=== PATIENT | male | born 1960 | race Caucasian/White ===

== ENCOUNTER 2018-09-25 15:11 | Emergency (ER) | payer OTHER ==
[~2018-09-25] VITALS: Ht 167.6 cm; Wt 72.6 kg
--- NOTE | 2018-09-25 15:15 | NUR ---
PT BIB BY C/O FEVER AND DIZZINESS. PT IS ON MONITOR IN BED 11. AOX4. FAMILY AT BEDSIDE. WILL CONTINUE TO MONITOR.
[2018-09-25] MEDS ORDERED: ACETAMINOPHEN 325 MG TABLET ONE (15:57)
[2018-09-25] MEDS ORDERED: IV NS 0.9% 1,000 ML BAG IV ONE (16:00)
[2018-09-25] MEDS ORDERED: ACETAMINOPHEN 325 MG TABLET PO ONE (16:00)
--- NOTE | 2018-09-25 16:00 | NUR ---
TECH AT BEDSIDE FOR EKG
[2018-09-25 16:06] LABS: BASOPHILS % (AUTO) 0.5 % (0.0-2.0); HEMATOCRIT 39 % (39-51); HEMOGLOBIN 12.8 g/dL (13.5-17.5); LYMPHOCYTES # (AUTO) 0.9 /CMM (0.8-4.8); MEAN CORPUSCULAR HGB CONC 33 g/dl (31.0-36.0); MEAN CORPUSCULAR VOLUME 85 fL (80-96); MONOCYTES # (AUTO) 0.7 /CMM (0.1-1.30); MONOCYTES % (AUTO) 7.1 % (2.0-12.0); NEUTROPHILS # (AUTO) 8.6 /CMM (1.8-8.9); NEUTROPHILS % (AUTO) 83.4 % (43.0-81.0); PLATELET COUNT (AUTO) 178 /CMM (150-450); RED BLOOD CELL COUNT(AUTO) 4.56 MIL/uL (4.5-6.0); WHITE BLOOD COUNT (AUTO) 10.3 K/uL (4.3-11.0)
--- NOTE | 2018-09-25 16:10 | NUR ---
URINE COLLECTED AND SENT TO LAB
[2018-09-25 16:16] LABS: CALCIUM, SERUM 8.4 mg/dL (8.5-10.1); CARBON DIOXIDE 28 mmol/L (21-32); CHLORIDE 94 mmol/L (98-107); CREATININE 1.2 mg/dL (0.6-1.3); GLUCOSE 313 mg/dL (74-106); POTASSIUM 3.3 mmol/L (3.5-5.1); SODIUM SERUM 133 mmol/L (136-145); UREA NITROGEN, BLOOD 13 mg/dL (7-18)
[2018-09-25 16:21] LABS: APPEARANCE,URINE Clear (CLEAR); BILIRUBIN,URINE Negative (NEGATIVE); BLOOD, URINE Small Ery/uL (NEGATIVE); COLOR,URINE Yellow (YELLOW); KETONES,URINE 15 (NEGATIVE); LEUKOCYTE ESTERASE ,URINE Negative (NEGATIVE); NITRITE, URINE Negative (NEGATIVE); PROTEIN,URINE 30 mg/dl (NEGATIVE); UGLUCOSE 500 MG/DL mg/dL (NEGATIVE)
[2018-09-25 16:22] LABS: ALANINE AMINOTRANSFERASE 46 U/L (12-78); ALBUMIN 3.3 g/dL (3.4-5.0); ALKALINE PHOSPHATASE 89 U/L (46-116); ASPARTATE AMINOTRANSFERASE 35 U/L (15-37); BILIRUBIN,DIRECT 0.2 mg/dL (0.0-0.2)
--- NOTE | 2018-09-25 16:23 | NUR ---
RADIOLOGY AT BEDSIDE FOR XRAY
[2018-09-25 16:33] LABS: SQUAMOUS EPITHELIAL CELL,UR Rare /HPF (None Seen)
[2018-09-25 16:34] LABS: BACTERIA,URINE Few /HPF (None Seen)
[2018-09-25] MEDS ORDERED: IBUPROFEN 600 MG TABLET PO ONE ×2 (16:40→17:00)
--- NOTE | 2018-09-25 16:43 | NUR ---
PT TRANSFERRED TO RADIOLOGY VIA [facility]
[2018-09-25] MEDS ORDERED: POTASSIUM CHLORIDE 20 MEQ TAB.PRT.SR PO ONE ×2 (17:30→17:52)
[2018-09-25] MEDS ORDERED: OMEP40CA37 PO (18:12)
[2018-09-25] MEDS ORDERED: FENO145T35 PO (18:12)
[2018-09-25] MEDS ORDERED: CHOL100044 PO (18:12)
[2018-09-25] MEDS ORDERED: SIMV10TA6 PO (18:12)
[2018-09-25] MEDS ORDERED: METF-440 PO (18:12)
[2018-09-25] MEDS ORDERED: METO25TA20 PO (18:12)
[2018-09-25] MEDS ORDERED: INSU3INS9 SQ (18:14)
--- NOTE | 2018-09-25 18:18 | NUR ---
Patient is resting comfortably in bed with eyes closed. Easily aroused. VSS. FAMILY AT BEDSIDE.
--- NOTE | 2018-09-25 19:21 | NUR ---
IV removed. Catheter intact and site benign. Pressure and 4x4 applied to site. No bleeding noted.Patient discharged to home in stable condition. Written and verbal after care instructions given. Patient verbalizes understanding of instruction.
[2018-09-25 19:22] VITALS: BP 126/71
[2018-09-25] MEDS ORDERED: PIPERACILLIN /TAZOBACTAM 3.375 G in IV D5W 50 ML IV ONE (19:30)
[2018-09-26] MEDS ORDERED: FENO134C PO (10:21)
== END 2018-09-25 19:25 | disposition home or self-care (01) ==
LOC: ER 15:26
DX: R10.31 Right lower quadrant pain (principal); R31.9 Hematuria, unspecified; E87.6 Hypokalemia; R50.9 Fever, unspecified; I10 Essential (primary) hypertension; E11.9 Type 2 diabetes mellitus without complications; R94.31 Abnormal electrocardiogram [ECG] [EKG]; R00.0 Tachycardia, unspecified; Z79.4 Long term (current) use of insulin
CPT/HCPCS: 36415; 71045; 74176; 80048; 80076; 81001; 83605; 84484; 85025; 85730; 87040 ×2; 87086; 87804 ×2; 93005; 99284; A4606; J7030 ×2; J7060; Z7610; 81000-TC; 87186-TC; 87400; J2543

== ENCOUNTER 2018-09-26 09:58 | Emergency (ER) | payer OTHER ==
[~2018-09-26] VITALS: Ht 167.6 cm; Wt 77.6 kg
[~2018-09-26 09:58] MED LIST: CHOL100044 PO; FENO145T35 PO; INSU3INS9 SQ; METF-440 PO; METO25TA20 PO; OMEP40CA37 PO; SIMV10TA6 PO
--- NOTE | 2018-09-26 10:14 | NUR ---
PT BIB C/O FEVER AND GENERALIZED WEAKNESS. PT ON MONITOR IN BED 10. WILL CONTINUE TO MONITOR.
[2018-09-26] MEDS ORDERED: FENO134C PO (10:21)
--- NOTE | 2018-09-26 10:23 | NUR ---
TECH AT BEDSIDE FOR EKG
--- NOTE | 2018-09-26 10:25 | NUR ---
PHLEB AT BEDSIDE FOR LAB DRAW
[2018-09-26] MEDS ORDERED: CEFTRIAXONE 1GM BAG (ER ONLY) 50 ML IV ONE ×2 (10:28→10:30)
[2018-09-26] MEDS ORDERED: ACETAMINOPHEN ES 500 MG TABLET ONE ×3 (10:28→17:43)
[2018-09-26] MEDS ORDERED: ACETAMINOPHEN ES 500 MG TABLET PO ONE ×2 (10:30→18:00)
[2018-09-26] MEDS ORDERED: IV NS 0.9% 1,000 ML BAG IV ONE (10:30)
--- NOTE | 2018-09-26 10:30 | NUR ---
ADDENDUM: Intravenous End Time Documentation: Rocephin 1 gram IVPB: start time:1030 am; end time: 1059 am IV site: RAC # 20 Port #1
[2018-09-26 10:33] LABS: BASOPHILS % (AUTO) 0.1 % (0.0-2.0); EOSINOPHILS % (AUTO) 0.1 % (0.0-6.0); HEMATOCRIT 39 % (39-51); HEMOGLOBIN 12.9 g/dL (13.5-17.5); LYMPHOCYTES # (AUTO) 0.7 /CMM (0.8-4.8); LYMPHOCYTES % (AUTO) 6.9 % (20.0-44.0); MEAN CORPUSCULAR HGB CONC 33 g/dl (31.0-36.0); MEAN CORPUSCULAR VOLUME 85 fL (80-96); MONOCYTES # (AUTO) 0.8 /CMM (0.1-1.30); MONOCYTES % (AUTO) 8.1 % (2.0-12.0); NEUTROPHILS # (AUTO) 8.3 /CMM (1.8-8.9); NEUTROPHILS % (AUTO) 84.8 % (43.0-81.0); PLATELET COUNT (AUTO) 183 /CMM (150-450); RED BLOOD CELL COUNT(AUTO) 4.56 MIL/uL (4.5-6.0); WHITE BLOOD COUNT (AUTO) 9.8 K/uL (4.3-11.0)
[2018-09-26 10:40] LABS: CALCIUM, SERUM 8.7 mg/dL (8.5-10.1); CREATININE 1.1 mg/dL (0.6-1.3); POTASSIUM 3.8 mmol/L (3.5-5.1)
--- NOTE | 2018-09-26 10:45 | NUR ---
instructed to get urine sample
[2018-09-26 10:54] LABS: ALBUMIN 3.3 g/dL (3.4-5.0); BILIRUBIN,DIRECT 0.2 mg/dL (0.0-0.2); BILIRUBIN,TOTAL 0.7 mg/dL (0.2-1.0); TOTAL PROTEIN, SERUM 7.4 g/dL (6.4-8.2)
--- NOTE | 2018-09-26 12:15 | NUR ---
DR DRIVER FROM [facility] CALLED ON THE PHONE WITH DR GRAJEDA.
--- NOTE | 2018-09-26 14:56 | NUR ---
PARTIENT WILL BE TRANSFERRED TO [facility] NUMBER FOR REPORT NURSE CHARLA BED [id number]
--- NOTE | 2018-09-26 15:58 | NUR ---
REPORT GIVEN TO SHERI DUNHAM FOR GERA
[2018-09-26 18:23] VITALS: BP 182/106
== END 2018-09-26 18:24 | disposition short-term general hospital (02) ==
LOC: ER 10:00
DX: A41.9 Sepsis, unspecified organism (principal); N39.0 Urinary tract infection, site not specified; I10 Essential (primary) hypertension; R00.0 Tachycardia, unspecified; Z79.4 Long term (current) use of insulin
CPT/HCPCS: 36415; 71045-TC; 80048-TC; 80076-TC; 83605-TC; 84484-TC; 85025-TC; 85730-TC; 87040-TC; 87081-TC; A4606; J0696; J7030; Z7610

== ENCOUNTER 2024-07-12 19:26 | Emergency (ER) | payer MEDICAID, OTHER ==
[~2024-07-12] VITALS: Ht 170.2 cm; Wt 72.1 kg
[~2024-07-12 19:26] MED LIST changes: +FENO134C PO; -FENO145T35 PO; +OMEP40CA21 PO; -OMEP40CA37 PO; -SIMV10TA6 PO; +SIMV10TA98 PO
[2024-07-12] MEDS: IV NS 0.9% 1,000 ML BAG IV ONE (20:00)
[2024-07-12 20:03] LABS: BASOPHILS % (AUTO) 0.3 % (0.0-2.0); EOSINOPHILS # (AUTO) 0.2 K/uL (0.0-0.7); EOSINOPHILS % (AUTO) 3.6 % (0.0-6.0); HEMATOCRIT 39 % (39-51); LYMPHOCYTES # (AUTO) 1.9 K/uL (0.8-4.8); MEAN CORPUSCULAR HEMOGLOBIN 29 PG (26.0-33.0); MEAN CORPUSCULAR HGB CONC 33 g/dl (31.0-36.0); MEAN CORPUSCULAR VOLUME 87 fL (80-96); MONOCYTES # (AUTO) 0.5 K/uL (0.1-1.30); MONOCYTES % (AUTO) 8.6 % (2.0-12.0); NEUTROPHILS # (AUTO) 3.2 K/uL (1.8-8.9); NEUTROPHILS % (AUTO) 54.5 % (43.0-81.0); PLATELET COUNT (AUTO) 183 K/uL (150-450); RED BLOOD CELL COUNT(AUTO) 4.48 MIL/uL (4.5-6.0); RED CELL DISTRIBUTION WIDTH 14.1 % (11.5-15.0); WHITE BLOOD COUNT (AUTO) 5.9 K/uL (4.3-11.0)
[2024-07-12 20:12] LABS: CARBON DIOXIDE 27 mmol/L (21-32); CHLORIDE 104 mmol/L (98-107); CREATININE 2.1 mg/dL (0.6-1.3); GLUCOSE 208 mg/dL (74-106); POTASSIUM 3.4 mmol/L (3.5-5.1); SODIUM SERUM 139 mmol/L (136-145); UREA NITROGEN, BLOOD 44 mg/dL (7-18)
[2024-07-12 20:15] LABS: INR 0.96 (0.91-1.10); PARTIAL THROMBOPLASTIN TIME 24.3 SEC (24.3-34.3); PROTHROMBIN TIME 9.9 SECS (9.2-11.1)
[2024-07-12 20:23] LABS: ALANINE AMINOTRANSFERASE 27 U/L (12-78); ALBUMIN 3.3 g/dL (3.4-5.0); ALKALINE PHOSPHATASE 56 U/L (46-116); ASPARTATE AMINOTRANSFERASE 17 U/L (15-37); BILIRUBIN,DIRECT 0.1 mg/dL (0.0-0.2); BILIRUBIN,TOTAL 0.4 mg/dL (0.2-1.0); CALCIUM, SERUM 8.2 mg/dL (8.5-10.1); TOTAL PROTEIN, SERUM 5.9 g/dL (6.4-8.2)
[2024-07-12] MEDS: TICAGRELOR 90 MG TABLET PO ONE (21:46)
[2024-07-12 22:36] VITALS: BP 118/78; TEMP 98.5; O2SAT 97
== END 2024-07-12 22:36 | disposition home or self-care (01) ==
LOC: ER 19:37
DX: R94.31 Abnormal electrocardiogram [ECG] [EKG] (principal); R53.1 Weakness; I10 Essential (primary) hypertension; E11.9 Type 2 diabetes mellitus without complications; E78.5 Hyperlipidemia, unspecified; I95.9 Hypotension, unspecified; F41.9 Anxiety disorder, unspecified; Z88.6 Allergy status to analgesic agent; Z79.899 Other long term (current) drug therapy
CPT/HCPCS: 99285; 96360; 71045; 93005; 84145; 85025; 80048; 87040; 83605; 80076; 36415; 84484; 85730; J7030